=== PATIENT | male | born 1980 | race Hispanic/Latino ===

== ENCOUNTER 2019-04-17 14:11 | Emergency (ER) | payer OTHER ==
[2019-04-17 15:11] LABS: Basophils % (Auto) 0.3 % (0.0-1.8); Eosinophils # (Auto) 0.2 K/mm3 (0.0-0.4); Lymphocytes # (Auto) 1.5 K/mm3 (1.2-5.4); Lymphocytes % (Auto) 18.3 % (13.4-35.0); Mean Corpuscular HGB Conc 36 % (32-34); Mean Corpuscular Volume 93 fl (84-94); Monocytes # (Auto) 0.5 K/mm3 (0.0-0.8); Monocytes % (Auto) 5.9 % (0.0-7.3); Platelet Count 209 K/mm3 (140-440); Red Blood Count 4.31 M/mm3 (3.65-5.03); Red Cell Distribution Width 13.3 % (13.2-15.2)
[2019-04-17 15:17] LABS: Hematocrit 40.2 % (35.5-45.6); Hemoglobin 14.4 gm/dl (11.8-15.2)
[2019-04-17 15:34] LABS: BUN/Creatinine Ratio 17; Blood Urea Nitrogen 12 mg/dL (9-20); Calcium 9.9 mg/dL (8.4-10.2); Hemolysis Index 33
[2019-04-17 17:55] VITALS: BP 138/85
--- NOTE | 2019-04-17 18:13 | Emergency Department Report ---
ED Chest Pain HPI - General Chief Complaint: Chest Pain Stated Complaint: CHEST PAIN Time Seen by Provider: 04/17/19 14:23 Source: patient Mode of arrival: Ambulatory Limitations: No Limitations - History of Present Illness Initial Comments: 38-year-old male presents to the emergency room for left chest fullness and pain and shortness of breath 5 days. Patient reports a past medical history of GERD currently takes Nexium is allergic to penicillin. Patient reports he had a similar episode 5 years ago and that's when he was diagnosed with GERD. Patient reports he has been taking his Nexium without much relief of the chest discomfort. Patient denies any nausea vomiting but reports that he was haven't dull pain in the chest that was also in the neck. Patient has family history of dad with arrhythmias mother unknown cardiac issues and his siblings are healthy. Patient does have a primary care provider. MD Complaint: chest pain Onset: during rest Pain Location: left chest Severity scale (0 -10): 3 Quality: dull Consistency: constant Improves With: nothing Worsens With: nothing re: diaphoresis. denies: nausea, vomting Treatments Prior to Arrival: none Aspirin use within the Past 7 Days: (0) No - Related Data On Oral Contraceptives: No Allergies Allergy/AdvReac Type Severity Reaction Status Date / Time Penicillins Allergy Unknown Verified 04/17/19 14:14 Heart Score - HEART Score History: Slightly suspicious EKG: Non-specific Age: < 45 Risk factors: No known risk factors Troponin: < normal limit HEART Score: 1 ED Review of Systems ROS: Stated complaint: CHEST PAIN Other details as noted in HPI Comment: All other systems reviewed and negative ED Past Medical Hx - Past Medical History Previous Medical History?: Yes Hx GERD: Yes - Surgical History Past Surgical History?: No - Social History Smoking Status: Unknown if ever smoked Substance Use Type: None ED Physical Exam - General Limitations: No Limitations General appearance: alert, in no apparent distress - Head Head exam: Present: atraumatic, normocephalic - Eye Eye exam: Present: normal appearance - ENT ENT exam: Present: mucous membranes moist - Neck Neck exam: Present: normal inspection - Respiratory Respiratory exam: Present: normal lung sounds bilaterally. Absent: respiratory distress, wheezes, chest wall tenderness - Cardiovascular Cardiovascular Exam: Present: regular rate, normal rhythm. Absent: systolic murmur, diastolic murmur, rubs, gallop - GI/Abdominal GI/Abdominal exam: Present: soft, normal bowel sounds - Rectal Rectal exam: Present: deferred - Extremities Exam Extremities exam: Present: normal inspection - Back Exam Back exam: Present: normal inspection - Neurological Exam Neurological exam: Present: alert, oriented X3, normal gait - Psychiatric Psychiatric exam: Present: normal affect, normal mood - Skin Skin exam: Present: warm, dry, intact, normal color. Absent: rash ED Course Vital Signs 04/17/19 17:54 Temperature 97.8 F Pulse Rate 70 Respiratory 20 Rate Blood Pressure 138/85 O2 Sat by Pulse 95 Oximetry JAMA score - Jama Score Age > 65: (0) No Aspirin use within the Past 7 Days: (0) No 3 or more CAD Risk Factors: (0) No 2 or more Angina events in past 24 hrs: (0) No Known CAD with more than 50% Stenosis: (0) No Elevated Cardiac Markers: (0) No ST Deviation Greater than 0.5mm: (0) No JAMA Score: 0 ED Medical Decision Making - Lab Data Result diagrams: 04/17/19 14:53 04/17/19 14:53 - Radiology Data Radiology results: report reviewed Patient: CAR MENDEZ MR#: [id number] : 1980 Acct:[id number] Age/Sex: 38 / M ADM Date: 04/17/19 Loc: ED Attending Dr: Ordering Physician: SELINA SMITH Date of Service: 04/17/19 Procedure(s): XR chest routine 2V Accession Number(s): [id number] cc: SELINA SMITH Fluoro Time In Minutes: PROCEDURE: XR CHEST ROUTINE 2V TECHNIQUE: PA and lateral chest radiographs were obtained. HISTORY: Chest Pain COMPARISONS: None. FINDINGS: Heart: Normal. Mediastinum/Vessels: Normal. Lungs/Pleural space: No infiltrate, effusion, or pneumothorax. Bony thorax: No acute osseous abnormality. IMPRESSION: No radiographic evidence of acute abnormality. This document is electronically signed by Kaela Jaimes MD., April 17 2019 06:15:58 PM ET Transcribed By: [facility] Dictated By: KAELA JAIMES M.D. Electronically Authenticated By: KAELA JAIMES M.D. Signed Date/Time: 04/17/191817 DD/ 34 TD/TT: 04/17/19 1635 - Medical Decision Making 38-year-old male with no past medical history of cardiac disease comes in for chest pain that seems had which she reports is fullness and shortness of breath for 5 days. Patient denies any nausea vomiting but did admit to diaphoresis. Patient has had CBC CMP troponin and chest x-ray EKG are within normal limits. Patient be discharged home with atypical chest pain and to follow-up with his primary care provider in the next 2-3 days. Patient was also given ibuprofen 600 mg her pain management. Critical care attestation.: If time is entered above; I have spent that time in minutes in the direct care of this critically ill patient, excluding procedure time. ED Disposition Clinical Impression: Atypical chest pain Disposition: DC-01 TO HOME OR SELFCARE Is pt being admited?: No Does the pt Need Aspirin: No Condition: Stable Instructions: Chest Pain (ED) Additional Instructions: You can take [id number] Tylenol and/or Motrin for pain control. X-ray EKG and labs are stable no indication of any cardiac abnormalities at this time. Referrals: TAMMY AG MD [Primary Care Provider] - 3-5 Days Your, provider [Other] - 3-5 Days Forms: Work/School Release Form(ED)
--- NOTE | 2019-04-17 18:18 | XRay Report ---
PROCEDURE: XR CHEST ROUTINE 2V TECHNIQUE: PA and lateral chest radiographs were obtained. HISTORY: Chest Pain COMPARISONS: None. FINDINGS: Heart: Normal. Mediastinum/Vessels: Normal. Lungs/Pleural space: No infiltrate, effusion, or pneumothorax. Bony thorax: No acute osseous abnormality. IMPRESSION: No radiographic evidence of acute abnormality. This document is electronically signed by Kaela Jaimes MD., April 17 2019 06:15:58 PM ET
[2019-04-17 18:28] LABS: Bilirubin,Urine NEG (Negative); Blood,Urine NEG (Negative); Color,Urine Straw (Yellow); Protein,Urine <15 mg/dL mg/dL (Negative); RBC,Urine < 1.0 /HPF (0.0-6.0); Urobilinogen,Urine < 2.0 mg/dL (<2.0)
[2019-04-17] MEDS ORDERED: IBUPROFEN PO ONE (19:08)
== END 2019-04-17 19:30 | disposition home or self-care (01) ==
LOC: ED 14:11
DX: R07.89 Other chest pain (principal); R06.02 Shortness of breath; K21.9 Gastro-esophageal reflux disease without esophagitis; Z88.0 Allergy status to penicillin
CPT/HCPCS: 36415; 71046; 80048; 81001; 84484; 85025; 93005; 93010